=== PATIENT | female | born 1965 | race Caucasian/White ===

== ENCOUNTER → 2016-08-29 | Day surgery (SDC) | payer OTHER ==
[2016-08-27 16:42] LABS: HCT 38.4 % (37.0-47.0); HGB 12.9 g/dl (12.5-16.0); MCH 30.3 pg (25.0-31.0); MCHC 33.6 g/dL (32.0-36.0); MCV 90.1 fL (78.0-100.0); MPV 10.5 fL (6.0-9.5); RBC 4.26 M/uL (4.20-5.40); RDW 13.6 % (11.5-14.0); WBC 10.2 K/uL (4.0-10.5)
[2016-08-27 17:02] LABS: ALBUMIN 4.4 g/dL (3.5-5.0); BILIRUBIN - TOTAL 0.4 mg/dL (0.1-1.0); GLOBULIN (CALCULATION) 2.8 g/dL (2.2-4.2); TOTAL PROTEIN 7.2 g/dL (6.4-8.3)
== END | disposition home or self-care (01) ==
LOC: FAS 09:36
PROVIDERS: Orthopaedic Surgery
DX: M23.322 Other meniscus derangements, posterior horn of medial meniscus, left knee (principal); M17.9 Osteoarthritis of knee, unspecified; M25.869 Other specified joint disorders, unspecified knee; F17.210 Nicotine dependence, cigarettes, uncomplicated; Z88.5 Allergy status to narcotic agent; Z79.899 Other long term (current) drug therapy
CPT/HCPCS: 36415; 71020; 80053; 93005; J2405; J2704; J3010